=== PATIENT | male | born 1960 | race Caucasian/White ===

== ENCOUNTER → 2024-02-26 07:31 | Outpatient (REF) | payer BC, SELFPAY | LOC: EMG 07:31 | PROVIDERS: ATTENDING PHYSICIAN Podiatrist Foot Surgery; FAMILY PHYSICIAN Family Medicine | DX: R20.9 Unspecified disturbances of skin sensation (principal) | CPT/HCPCS: 95907 ==

== ENCOUNTER 2024-03-11 06:24 | Day surgery (SDC) | payer BC, SELFPAY ==
[2024-03-11] MEDS: TYLENOL 1000 MG PO (08:59)
[2024-03-11] MEDS: NORMOSOL-R/PLASMALYTE-A 1000 IV (09:00)
[2024-03-11 09:22] LABS: Glucose - Point of Care 126 mg/dl (70-99)
--- NOTE | 2024-03-11 11:28 | OR.RPT ---
Operative Report
Operative Report
Primary Surgeon: Raysa
Assisting: Tess DE LA CRUZ
Pre-op Diagnosis: Incarcerated umbilical hernia
Post-op Diagnosis: Same
Procedure Performed: Robot assisted laparoscopic repair of incarcerated umbilical hernia (rTAPP)
Anesthesia Type: GETA + TAP block
Specimen / Cultures: None
Estimated Blood Loss: 5cc
Complications: None immediate
Operative Findings: 1cm defect with incarcerated fat, 13cm x 13cm bard soft mesh
Date of surgery: 03/11/24
Indications:� This 63M developed a symptomatic umbilical hernia. Robot assisted laparoscopic repair was planned.
Description of procedure:� The patient was taken to the operating room and positioned into supine position. The patient�s abdomen was prepped and draped in standard sterile fashion. A time-out was completed verifying correct patient, procedure,
site, positioning, and implants and special equipment prior to beginning this procedure.� The hernia was partially manually reduced after induction. A stab incision was made in the left upper quadrant, a Veress needle was inserted and proper
position was confirmed by aspiration and saline drop test. Following this, pneumoperitoneum was created with insufflation of carbon dioxide to 12 mmHg. Then a 8mm robotic trocar was inserted at the left anterior axillary line at the level of the
umbilicus. The laparoscope was inserted and no injuries were identified in the area. Under direct visualization, the initial trocar was exposed and two 8mm trocars were placed a hand's breadth above and below the initial trocar under direct
visualization.
Attention was turned to the defect. The peritoneum was incised several cm superior to the defect and a peritoneal flap was developed in transverse and caudad directions using blunt and sharp dissection and judicious electrocautery. The defect was
identified and measured as above. Incarcerated fatty contents were reduced. The defect was closed with 0 PDS stratafix suture. A 13cm x 13cm bard soft mesh was passed into the abdomen. It was placed against the underside of the abdominal wall and
secured in place with 2-0 vicryl sutures at all four corners and longterm along each side. The flap was closed over the mesh and secured with 2-0 monocryl stratafix suture. A large rent was noted under the defect, this was repaired using a 2-0
monocryl stratafix suture. A 14g angiocath was used to decompress the preperitoneal space. The flap sealed and suctioned nicely up to the abdominal wall. The mesh did not fold nor curl. A transversus abdominis plane block was then performed under
laparoscopic vision with marcaine/decadron.
After ensuring adequate hemostasis, the trocars were removed and the pneumoperitoneum allowed to escape. The trocar incisions were closed at the skin level using 4-0 monocryl and topical skin adhesive. All counts were correct and the patient
tolerated the procedure well and was taken to the postanesthesia care unit in stable condition.
[2024-03-11] MEDS: DILAUDID 0.25 MG IV ×3 (11:45→12:22)
[2024-03-11] MEDS: ROXICODONE 5 MG PO (13:16)
== END 2024-03-11 14:10 | disposition home or self-care (01) ==
LOC: SDS 06:24
PROVIDERS: ATTENDING PHYSICIAN Surgery; FAMILY PHYSICIAN Family Medicine
PROC: 0WUF4JZ Supplement Abdominal Wall with Synthetic Substitute, Percutaneous Endoscopic Approach (ICD-10-PCS; 2024-03-11)
PROC: 8E0W4CZ Robotic Assisted Procedure of Trunk Region, Percutaneous Endoscopic Approach (ICD-10-PCS; 2024-03-11)
DX: K42.0 Umbilical hernia with obstruction, without gangrene (principal)
CPT/HCPCS: 49592; 82962; 93005; C1781

== ENCOUNTER 2025-03-14 16:29 | Emergency (ER) | payer BC, SELFPAY ==
[2025-03-14 16:33] VITALS: BP 143/95
[2025-03-14 16:56] LABS: Hematocrit 47.9 % (39.0-52.0); Hemoglobin 16.4 g/dL (13.0-18.0); Mean Corp Hgb Conc. 34.2 g/dL (33.0-37.0); Mean Corpuscular Volume 86.8 fL (80.0-94.0); Nucleated Red Blood Cells % 0 % (-); Platelet Count 247 10^3/uL (130-400); Red Cell Dist. Width 12.5 % (11.5-14.5)
[2025-03-14 17:00] LABS: Urine Character Clear (Clear)
[2025-03-14 17:26] LABS: ALT (SGPT) 46 U/L (0-50); AST (SGOT) 28 U/L (17-59); Albumin 5.0 g/dl (3.5-5.0); Alkaline Phosphatase 95 U/L (38-126); Blood Urea Nitrogen 22 mg/dl (9-20); Calcium 10.3 mg/dl (8.4-10.2); Carbon Dioxide 28 mmol/L (22-30); Chloride 102 mmol/L (98-107); Glucose 202 mg/dl (70-99); Potassium 5.3 mmol/L (3.5-5.1); Sodium 139 mmol/L (135-145); Total Protein 7.8 g/dl (6.3-8.2); eGFR > 60.00
[2025-03-14 19:15] VITALS: BMI 30.1
--- NOTE | 2025-03-14 19:17 | EDRN ---
Pt has chronic back pain. On Monday, pt developed pain in R flank area. Pt saw his primary care doctor yesterday for the pain that started radiating around into R abdomen. Pt went to his chiropractor today because he thought it was pain from his
back and the doctor sent him to the ED for evaluation. Pain intermittent, better since pt has been sitting and waiting for ED room. Pt has been taking motrin, last dose around 1200. Pt started a steroid pack this morning which was prescribed by
family physician, chiropractor today told pt to stop taking it. No nausea/vomiting, fever/chills/cough. Pt notes slow urine stream, no burning/blood. No hx kidney stones.
[2025-03-14 19:20] VITALS: BP 130/84
[2025-03-14 21:26] VITALS: BP 130/82
--- NOTE | 2025-03-14 22:33 | ED.GENMED ---
History of Present Illness
General
Chief Complaint: Flank Pain
Time Seen by Provider: 03/14/25 19:09
History of Present Illness
History of Present Illness:
64-year-old male presents to the emergency department for evaluation of right flank pain ongoing for the past 5 days. Pain seems to wax and wane but is definitively worse when he attempts to stand up. Initially thought this was related to his
chronic low back pain and was treated with a course of steroids by his primary doctor, steroids were completed yesterday. Followed up with his pain and operation specialist who felt this did not represent his back pain and thus recommended he come to
the ER for evaluation. No fevers, chills, nausea, vomiting, dysuria, or hematuria
Past History
Past History
ED Past Medical History: GERD and HTN
ED Past Surgical History: Orthopedic (Rotator cuff repair)
Social History
Tobacco: Non-smoker
Alcohol: Occasional
Personal:
Living: with family
Employment: Employed
Family History
Family History: Negative CAD
Review of Systems
Review of Systems
Allergies reviewed?: Yes
All Other Systems: ROS reviewed and negative except as documented in HPI and ROS
Phy Exam
Physical Exam
Physical Exam:
GEN: Well appearing, NAD, WDWN
HEENT: Oral mucosa moist, no scleral icterus
Cardiac: Regular rate
Lung: No respiratory distress, no tachypnea
Abdomen: Soft, grossly nontender to palpation
MSK: No gross deformity or injuries
Skin: Good color, no pallor or jaundice, no rashes
Neuro: AO x3, moves all extremities freely
Psych: Calm, cooperative
Course
Orders/Labs/Results
Orders:
Orders
03/14/25 16:40
CBC/With Diff [Complete Blood Count/With Diff] Urgent
Comprehensive Metabolic Panel Urgent
03/14/25 16:42
Urinalysis Reflex To Culture Urgent
Date Specimen was Collected: 03/14/25
Time Specimen was Collected: 16:32
03/14/25 19:32
CT Abd/Pel (IV only)-DH only Urgent
Comment:
Reason For Exam: R flank/RLQ pain
Abnormal Lab Results
03/14/25 03/14/25
16:40 16:42
MPV 11.3 H fL
(7.4-10.4)
Absolute Neuts (auto) 8.5 H 10^3/uL
(1.4-6.5)
Absolute Lymphs (auto) 0.8 L 10^3/uL
(1.2-3.4)
Neutrophils % 86.2 H %
(42.2-75.2)
Lymphocytes % 8.0 L %
(20.5-51.1)
Potassium 5.3 H mmol/L
(3.5-5.1)
BUN 22 H mg/dl
(9-20)
Glucose 202 H mg/dl
(70-99)
Calcium 10.3 H mg/dl
(8.4-10.2)
Urine Ketones 1+ A
(Negative)
Urine Glucose 4+ A
(Negative)
03/14/25 16:40
03/14/25 16:40
Vital Signs
Initial and Last Documented VS:
Initial Vital Signs
Temp Pulse Resp BP Pulse Ox
97.7 F 114 18 143/95 95
03/14/25 16:33 03/14/25 16:33 03/14/25 16:33 03/14/25 16:33 03/14/25 16:33
Last Documented Vital Signs
Temp Pulse Resp BP Pulse Ox
97.7 F 72 14 130/82 96
03/14/25 16:33 03/14/25 21:26 03/14/25 21:26 03/14/25 21:26 03/14/25 22:34
MDM/Problems Addressed
MDM/Problems Addressed:
Imaging shows no clear evidence of pain. Likely mechanical/muscular, patient is counseled regarding his glucose urea which may be acute in the setting of recent steroid use however advised to withhold further steroids at this time. Encouraged to
follow-up with his primary care physician regarding the hyperglycemia and glycosuria
*Pulse Oximetry
SaO2: 96
Oxygen Mode of Delivery: Room air
Patient hypoxic: no
*Critical Care Note
Total Time (30-74mins, 75-104mins- exclusive of procedures): Not Applicable
ED Attending Note
-
Portions of this chart may have been created with voice recognition software.� Occasional wrong word or��sound alike� substitutions may have occurred due to the inherent limitations of voice recognition software.
Discharge Plan
Departure
Patient Disposition: Home (Routine Discharge)
Date of Disposition: 03/14/25
Time of Disposition: 23:05
Patient with high blood pressure during this ER visit?: No
Discharge Problem:
Abdominal pain
Instructions: Flank Pain (DC)
Prescriptions:
No Action
No Current Medications
0
Referrals:
Damon Abbtot MD [Family Provider, Family Practice]
Activity Restrictions/Additional Instructions:
Cause of your pain is not clear at this time, do not take further steroids due to your elevated blood sugar and glucose in the urine. Follow-up with your primary doctor regarding the elevated blood sugar. Follow-up with your pain specialist if
symptoms persist
Interventions
Interventions:
*Risk Screen - Suicide Last Done: 03/14/25 16:33
*General Assessment Last Done: 03/14/25 19:14
*Neglect/Abuse Screening Last Done: 03/14/25 19:14
*ED- Fall Risk Assessment Last Done: 03/14/25 19:21
AZ-Dgaegb-Cpeeajsxeh Assessment Last Done: 03/14/25 19:24
ED-Male Genitourinary Assessment Last Done: 03/14/25 19:24
Discharge Date and Time
Print Language: DUTCH
== END 2025-03-14 23:25 | disposition home or self-care (01) ==
LOC: EMR 16:29
PROVIDERS: Emergency Medicine; EMERGENCY PHYSICIAN Emergency Medicine; FAMILY PHYSICIAN Family Medicine
DX: R10.9 Unspecified abdominal pain (principal); K21.9 Gastro-esophageal reflux disease without esophagitis; I10 Essential (primary) hypertension
CPT/HCPCS: 99284; 74177; 80053; 81003; 85025; Q9967